=== PATIENT | female | born 1990 | race Two or more races ===

== ENCOUNTER 2018-02-17 04:32 | Emergency (ER) | payer OTHER ==
[~2018-02-17] VITALS: Ht 154.9 cm; Wt 52.2 kg
[2018-02-17] MEDS ORDERED: PRILOSEC2.5 MG (04:41)
== END 2018-02-17 13:32 | disposition home or self-care (01) ==
LOC: ER 04:32
DX: K21.9 Gastro-esophageal reflux disease without esophagitis (principal); K29.70 Gastritis, unspecified, without bleeding

== ENCOUNTER → 2018-06-18 | Emergency (ER) | payer OTHER ==
[~2018-06-18] VITALS: Ht 149.9 cm; Wt 56.7 kg
[~2018-06-18] MED LIST: CARAFATE1 GM; NEXIUM10 MG; PEPCID40 MG PO; PRILOSEC2.5 MG
== END | disposition home or self-care (01) ==
LOC: ER 01:27
DX: R10.13 Epigastric pain (principal)

== ENCOUNTER 2018-06-24 17:21 | Emergency (ER) | payer OTHER ==
[~2018-06-24] VITALS: Ht 157.5 cm; Wt 52.2 kg
[~2018-06-24 17:21] MED LIST changes: -CARAFATE1 GM; -NEXIUM10 MG
[2018-06-24] MEDS ORDERED: CARAFATE1 GM (17:36)
[2018-06-24] MEDS ORDERED: NEXIUM10 MG (17:36)
== END 2018-06-24 21:03 | disposition home or self-care (01) ==
LOC: ER 17:21
DX: M25.512 Pain in left shoulder (principal); M54.2 Cervicalgia

== ENCOUNTER 2018-08-26 20:09 | Emergency (ER) | payer OTHER ==
[~2018-08-26] VITALS: Ht 154.9 cm; Wt 49.9 kg
[~2018-08-26 20:09] MED LIST changes: +CARAFATE1 GM; +NEXIUM10 MG
== END 2018-08-27 00:45 | disposition home or self-care (01) ==
LOC: ER 20:09
DX: K21.9 Gastro-esophageal reflux disease without esophagitis (principal); K29.70 Gastritis, unspecified, without bleeding; M62.830 Muscle spasm of back

== ENCOUNTER 2018-11-01 07:36 | Emergency (ER) | payer OTHER ==
[~2018-11-01] VITALS: Ht 154.9 cm; Wt 52.2 kg
[2018-11-01] MEDS ORDERED: CYCLOBENZAPRINE10 MG (08:36)
[2018-11-01] MEDS ORDERED: CYCLOBENZAPRINE10 MG PO (08:38)
[2018-11-01] MEDS ORDERED: CELEBREX100 MG PO (08:38)
== END 2018-11-01 08:59 | disposition home or self-care (01) ==
LOC: ER 07:36
DX: M75.81 Other shoulder lesions, right shoulder (principal); M75.82 Other shoulder lesions, left shoulder

== ENCOUNTER 2018-11-11 02:07 | Emergency (ER) | payer OTHER ==
[~2018-11-11] VITALS: Ht 154.9 cm; Wt 52.2 kg
[~2018-11-11 02:07] MED LIST changes: +CELEBREX100 MG PO; +CYCLOBENZAPRINE10 MG; +CYCLOBENZAPRINE10 MG PO
[2018-11-11] MEDS ORDERED: KETO10TA2 PO (03:24)
[2018-11-11] MEDS ORDERED: PERCOCET 5-3251 EACH PO (03:24)
[2018-11-11] MEDS ORDERED: ROBAXIN500 MG PO (03:24)
== END 2018-11-11 03:46 | disposition home or self-care (01) ==
LOC: ER 02:07
DX: M75.82 Other shoulder lesions, left shoulder (principal); M25.512 Pain in left shoulder

== ENCOUNTER 2019-02-11 02:47 | Emergency (ER) | payer OTHER ==
[~2019-02-11] VITALS: Ht 154.9 cm; Wt 52.2 kg
[~2019-02-11 02:47] MED LIST changes: +KETO10TA2 PO; +PERCOCET 5-3251 EACH PO; +ROBAXIN500 MG PO
[2019-02-11] MEDS ORDERED: CATAFLAN (03:03)
[2019-02-11] MEDS ORDERED: MOBIC15 MG PO (03:57)
== END 2019-02-11 04:03 | disposition home or self-care (01) ==
LOC: ER 02:47
DX: M25.512 Pain in left shoulder (principal)

== ENCOUNTER 2019-02-25 09:57 | Outpatient (CLI) | payer OTHER ==
[~2019-02-25 09:57] MED LIST changes: +CATAFLAN; +MOBIC15 MG PO
== END 2019-02-25 10:00 | disposition home or self-care (01) ==
LOC: SONOGRAMA 09:57 → MAMO-SONO 10:15
DX: M75.102 Unspecified rotator cuff tear or rupture of left shoulder, not specified as traumatic (principal)

== ENCOUNTER 2019-03-17 16:31 | Emergency (ER) | payer OTHER ==
[~2019-03-17] VITALS: Ht 154.9 cm; Wt 51.3 kg
== END 2019-03-17 19:51 | disposition home or self-care (01) ==
LOC: ER 16:31
DX: M94.0 Chondrocostal junction syndrome [Tietze] (principal); M62.830 Muscle spasm of back; K29.70 Gastritis, unspecified, without bleeding; F32.9 Major depressive disorder, single episode, unspecified

== ENCOUNTER 2019-03-24 23:28 | Emergency (ER) | payer OTHER ==
[~2019-03-24] VITALS: Ht 154.9 cm; Wt 51.3 kg
[2019-03-24] MEDS ORDERED: NEXIUM40 M1 (23:37)
[2019-03-24] MEDS ORDERED: CARAFATE1 GM (23:37)
[2019-03-25] MEDS ORDERED: LEVSIN/SL0.125 MG SL (03:44)
[2019-03-25] MEDS ORDERED: PHAZYME250 MG PO (03:44)
== END 2019-03-25 03:57 | disposition home or self-care (01) ==
LOC: ER 23:28
DX: R10.13 Epigastric pain (principal)

== ENCOUNTER → 2019-03-27 | Emergency (ER) | payer OTHER ==
[~2019-03-27] VITALS: Ht 154.9 cm; Wt 51.3 kg
[~2019-03-27] MED LIST changes: +LEVSIN/SL0.125 MG SL; +NEXIUM40 M1; +PHAZYME250 MG PO
== END | disposition home or self-care (01) ==
LOC: ER 00:38
DX: R10.31 Right lower quadrant pain (principal)

== ENCOUNTER 2019-04-14 22:50 | Emergency (ER) | payer OTHER ==
[~2019-04-14] VITALS: Ht 154.9 cm; Wt 51.3 kg
[2019-04-15] MEDS ORDERED: LEVSIN/SL0.125 MG SL (02:35)
[2019-04-15] MEDS ORDERED: MOBIC15 MG PO (02:35)
== END 2019-04-15 02:47 ==
LOC: ER 22:50
DX: M75.82 Other shoulder lesions, left shoulder (principal); R10.13 Epigastric pain

== ENCOUNTER 2019-05-11 15:28 | Outpatient (CLI) | payer OTHER | END 2019-05-11 15:30 | disposition home or self-care (01) | LOC: RAD 15:28 | DX: M25.511 Pain in right shoulder (principal); M25.512 Pain in left shoulder ==

== ENCOUNTER → 2019-07-30 | Outpatient (CLI) | payer OTHER | END | disposition home or self-care (01) | LOC: MRI 09:15 | DX: M25.512 Pain in left shoulder (principal) | CPT/HCPCS: 73221 ==

== ENCOUNTER → 2019-09-28 | Emergency (ER) | payer OTHER | END | disposition left against medical advice (07) | LOC: ER 19:46 | DX: Z53.20 Procedure and treatment not carried out because of patient's decision for unspecified reasons (principal) ==

== ENCOUNTER 2019-10-09 07:32 | Outpatient (CLI) | payer OTHER | END 2019-10-09 07:40 | disposition home or self-care (01) | LOC: SONOGRAMA 07:32 | DX: R16.1 Splenomegaly, not elsewhere classified (principal) ==

== ENCOUNTER 2021-07-05 09:57 | Outpatient (CLI) | payer OTHER | END 2021-07-05 10:06 | disposition home or self-care (01) | LOC: SONOGRAMA 09:57 | DX: N64.59 Other signs and symptoms in breast (principal) ==

== ENCOUNTER 2021-10-11 14:56 | Emergency (ER) | payer OTHER ==
[~2021-10-11] VITALS: Ht 154.9 cm; Wt 52.2 kg
== END 2021-10-11 18:33 | disposition home or self-care (01) ==
LOC: ER 14:56
DX: L02.414 Cutaneous abscess of left upper limb (principal); M79.602 Pain in left arm

== ENCOUNTER 2021-10-17 07:41 | Outpatient (CLI) | payer OTHER | END 2021-10-17 07:46 | disposition home or self-care (01) | LOC: RAD 07:41 | DX: M85.512 Aneurysmal bone cyst, left shoulder (principal) ==

== ENCOUNTER 2022-04-17 00:47 | Emergency (ER) | payer OTHER ==
[~2022-04-17] VITALS: Ht 154.9 cm; Wt 53.5 kg
[2022-04-17] MEDS ORDERED: METAXALONE800 MG PO (03:43)
[2022-04-17] MEDS ORDERED: DICLOFENAC POTA50 MG PO (03:43)
== END 2022-04-17 04:21 | disposition home or self-care (01) ==
LOC: ER 00:47
DX: M25.512 Pain in left shoulder (principal); M79.602 Pain in left arm; Z20.822 Contact with and (suspected) exposure to COVID-19; Z88.8 Allergy status to other drugs, medicaments and biological substances

== ENCOUNTER 2022-05-23 12:42 | Outpatient (CLI) | payer OTHER ==
[~2022-05-23 12:42] MED LIST changes: +ACETAMINOPHEN650 M2; +DICLOFENAC POTA50 MG PO; +METAXALONE800 MG PO
== END 2022-05-23 12:49 | disposition home or self-care (01) ==
LOC: RAD 12:42
DX: Z01.810 Encounter for preprocedural cardiovascular examination (principal)

== ENCOUNTER 2022-05-23 13:11 | Outpatient (CLI) | payer OTHER | END 2022-05-23 13:12 | disposition home or self-care (01) | LOC: LAB 13:11 | PROVIDERS: ATTEND Orthopaedic Surgery Sports Medicine | DX: Z20.822 Contact with and (suspected) exposure to COVID-19 (principal) ==

== ENCOUNTER → 2022-07-31 | Outpatient (CLI) | payer OTHER | END | disposition home or self-care (01) | LOC: MRI 12:49 | DX: M25.512 Pain in left shoulder (principal) | CPT/HCPCS: 73221 ==

== ENCOUNTER 2023-02-05 13:04 | Emergency (ER) | payer OTHER ==
[~2023-02-05] VITALS: Ht 154.9 cm; Wt 54.4 kg
== END 2023-02-05 18:36 | disposition home or self-care (01) ==
LOC: ER 13:04
DX: S49.82XA Other specified injuries of left shoulder and upper arm, initial encounter (principal); X58.XXXA Exposure to other specified factors, initial encounter; Y93.55 Activity, bike riding; Y92.89 Other specified places as the place of occurrence of the external cause; Y99.8 Other external cause status; Z88.8 Allergy status to other drugs, medicaments and biological substances

== ENCOUNTER 2023-06-29 15:50 | Emergency (ER) | payer OTHER ==
[~2023-06-29] VITALS: Ht 154.9 cm; Wt 56.7 kg
== END 2023-06-29 20:39 | disposition home or self-care (01) ==
LOC: ER 15:50
DX: M25.512 Pain in left shoulder (principal); Z88.2 Allergy status to sulfonamides; Z91.013 Allergy to seafood

== ENCOUNTER 2024-12-22 12:35 | Outpatient (CLI) | payer OTHER | END 2024-12-22 12:39 | disposition home or self-care (01) | LOC: RAD 12:35 | PROVIDERS: ATTEND Orthopaedic Surgery Sports Medicine | DX: M25.562 Pain in left knee (principal); M25.521 Pain in right elbow | CPT/HCPCS: 73721 ==